=== PATIENT | male | born 1995 ===

== ENCOUNTER 2016-05-16 16:06 | Inpatient (IN) | payer OTHER ==
[~2016-05-16] VITALS: Ht 175.3 cm; Wt 19.4 kg
[2016-05-16] MEDS ORDERED: OXYC-643 PO (17:55)
[2016-05-16] MEDS ORDERED: SODIUM CHLORIDE 0.9% 500ML 500 ML IV STA (18:21)
[2016-05-16] MEDS ORDERED: OPTIRAY 320 IV PRN (18:45)
[2016-05-16 18:46] LABS: BASO % 0.2 %; BASO ABS # 0.03 K/uL (0-0.2); COMPLETE YES; EOS % 0.2 %; HEMATOCRIT 40.5 % (42-52); IG% 0.3 %; LYMPH % 13.5 %; LYMPH ABS # 1.66 K/uL (1.2-3.4); MEAN CELL VOLUME 87.1 fL (80-100); MEAN CORPUSCULAR HEMOGLOBIN 30.3 pg (25-34); MEAN CORPUSCULAR HGB CONC 34.8 g/dl (32-36); MEAN PLATELET VOLUME 9.6 fL (7.4-10.4); MONO % 7.5 %; NEUT % 78.3 %; PLATELET COUNT 286 K/uL (130-400); RED BLOOD COUNT 4.65 M/uL (4.7-6.1); WHITE BLOOD COUNT 12.33 K/uL (4.8-10.8)
[2016-05-16] MEDS ORDERED: MoRPHine SULFATE 10 MG/ML CARP/VIAL IV STA (18:56)
[2016-05-16 19:00] LABS: BLOOD UREA NITROGEN 11 mg/dl (7-18); CREATININE 0.76 mg/dl (0.60-1.40); GLUCOSE 91 mg/dl (70-99)
[2016-05-16 19:01] LABS: ALT/SGPT 18 U/L (12-78); BUN/CREATININE RATIO 14.1 (10-20); CALCIUM 9.7 mg/dl (8.5-10.1); CARBON DIOXIDE 26 mmol/L (21-32); CHLORIDE 102 mmol/L (98-107); POTASSIUM 3.8 mmol/L (3.5-5.1); SODIUM 139 mmol/L (136-145)
[2016-05-16 19:03] LABS: ALKALINE PHOSPHATASE 66 U/L (45-117); AST/SGOT 12 U/L (15-37)
[2016-05-16] MEDS ORDERED: LACTATED RINGER'S 1000ML 1,000 ML IV SCH (19:15)
[2016-05-16] MEDS ORDERED: METHYLENE BLUE 0.5% 10 ML VIAL ONE (19:16)
--- NOTE | 2016-05-16 19:18 | History and Physical ---
History & Physical Date May 16, 2016. 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 (2) No Known Active Medical Problems (3) Tumor of rectum Additional History Hepatic Disease: No Endocrine Disorder: No Kidney Disease: No Hypertension: No Heart Disease: No Allergies Coded Allergies: Amoxicillin (Verified Allergy, Unknown, rash, 05/16/16) Home Medications Miscellaneous Medications Oxycodone/Acetaminophen 5MG/325MG (Oxycodone/Acetaminophen 5MG/325MG), Unknown Dose PO Physical Examination Skin: warm/dry, no rash Eyes: normal inspection Head: atraumatic Neck: supple Respiratory/Chest: lungs clear, no respiratory distress Cardiovascular: regular rate, rhythm Abdomen / GI: + pertinent finding (significant swelling Lt perianal area- fluctuant) Extremities: normal inspection Neurologic/Psych: alert Diagnosis perirectal abscess Plan of Treatment 05/16/16- perirectal abscess- will need OR incision and drainage- CT pelvis has been ordered- IV fluids and antibiotics
--- NOTE | 2016-05-16 19:44 | DIAGNOSTIC IMAGING REPORT ---
Pelvis CT with and without intravenous contrast. HISTORY: Perirectal abscess. Mass at base of scrotum. TECHNIQUE: Multiaxial CT images of the pelvis performed following use of intravenous contrast. COMPARISON STUDY: None. FINDINGS: Mild scrotal wall thickening and enhancement. Within the left perineum there is a 5.8 x 2.0 cm subcutaneous abscess. There is associated skin thickening and subcutaneous fat stranding at this location. There may be a tiny fistula tract extending to the left perianal location. Therefore this favors a perianal abscess rather than subcutaneous abscess. Normal bladder. No bowel wall thickening or obstruction. The visualized appendix is unremarkable. IMPRESSION: Within the left perineum there is a 5.8 x 2.0 cm subcutaneous abscess. There may be a tiny fistula tract extending to the left perianal location. Therefore this favors a perianal abscess rather than subcutaneous abscess. Electronically signed by: Osiel Harrington M.D. 05/16/2016 7:43 PM Dictated Date/Time: 05/16/2016 7:38 PM
[2016-05-16] MEDS ORDERED: METRONIDAZOLE 500MG / 100ML NSS ONE (19:45)
[2016-05-16] MEDS ORDERED: CIPROFLOXACIN 400MG / 200ML D5W ONE (19:45)
[2016-05-16 19:55] VITALS: O2SAT 96
[2016-05-16] MEDS ORDERED: CALCIUM GLUCONATE 10% 10 ML VIAL IV STA (20:01)
[2016-05-16 20:10] LABS: URINE APPEARANCE CLEAR (CLEAR); URINE BILIRUBIN NEG (NEG); URINE COLOR YELLOW; URINE EPITHELIAL CELL AUTO >30 /lpf (0-5); URINE NITRITE NEG (NEG); URINE SPECIFIC GRAVITY 1.042 (1.000-1.030); UROBILINOGEN NEG (NEG)
[2016-05-16 20:11] LABS: MANUAL MICROSCOPIC REQUIRED? NO; REVIEW REQ? YES
[2016-05-16 20:18] LABS: URINE MUCUS PRESENT (NONE PRSENT)
[2016-05-16] MEDS ORDERED: FENTANYL CITRATE INJ 50 MCG/1 ML 2 ML VIAL ONE ×3 (20:18→22:01)
[2016-05-16] MEDS ORDERED: ONDANSETRON INJ 2 MG/ML 2 ML VIAL ONE ×2 (20:19→21:04)
[2016-05-16] MEDS ORDERED: LIDOCAINE HCL 2% 2 ML VIAL (20MG/ML) ONE (20:19)
[2016-05-16] MEDS ORDERED: DEXAMETHASONE SOD INJ 4 MG/ML VIAL ONE (20:19)
[2016-05-16] MEDS ORDERED: MIDAZOLAM HCL 1 MG/ML 2ML VIAL ONE (20:19)
[2016-05-16] MEDS ORDERED: PROPOFOL IV EMULSION 10 MG/ML 20 ML VIAL IV ONE (20:19)
[2016-05-16 20:20] LABS: ZZUR CULT IF INDIC CLEAN CATCH YES
[2016-05-16] MEDS ORDERED: ONDANSETRON INJ 2 MG/ML 2 ML VIAL IV PRN ×2 (20:30→21:30)
[2016-05-16] MEDS ORDERED: PHENYLEPHRINE 100MCG/ML 5ML SYR IV PRN (20:30)
[2016-05-16] MEDS ORDERED: LABETALOL HCL IV 5 MG/ML 20ML IV PRN (20:30)
[2016-05-16] MEDS ORDERED: FENTANYL CITRATE INJ 50 MCG/1 ML 2 ML VIAL IV PRN (20:30)
[2016-05-16] MEDS ORDERED: EpHEDrine SULFATE INJ 50 MG/ML AMP IV PRN (20:30)
[2016-05-16] MEDS ORDERED: HYDROmorphone INJ 2 MG/ML SYR/VIAL IV PRN (20:30)
[2016-05-16] MEDS ORDERED: MEPERIDINE HCL 25 MG/ML CARP IV PRN (20:30)
[2016-05-16] MEDS ORDERED: NALOXONE HCL 0.4 MG/1 ML VIAL/CARP IV PRN (20:30)
[2016-05-16] MEDS ORDERED: ATROPINE SULFATE 0.1 MG/ML 5ML SYR IV PRN (20:30)
[2016-05-16] MEDS ORDERED: FLUMAZENIL 0.1 MG/1 ML 10 ML VIAL IV PRN (20:30)
[2016-05-16] MEDS ORDERED: BUPIVACAINE 0.5 % 5 MG/1 ML MPF 30ML VIAL ONE (20:45)
[2016-05-16] MEDS ORDERED: ETOMIDATE 2 MG/ML 20 ML VIAL IV ONE (21:05)
[2016-05-16] MEDS ORDERED: KETOROLAC TROMETHAMINE 30 MG/ML VIAL ONE ×2 (21:07→21:08)
--- NOTE | 2016-05-16 21:22 | [facility] Post Operative Brief Note ---
Immediate Operative Summary Operative Date May 16, 2016. Pre-Operative Diagnosis perirectal abscess Post-Operative Diagnosis same Procedure(s) Performed incision/ drainage perirectal abscess Surgeon PAULINA [facility] Surgeon(s) nurses Estimated Blood Loss 10 cc Findings abscess Specimens culture Anesthesia gen Complication(s) None Disposition Recovery Room / PACU
[2016-05-16] MEDS ORDERED: HYDROmorphone INJ 1 MG/ML SYR IV PRN (21:30)
[2016-05-16] MEDS ORDERED: PROMETHAZINE HCL INJ 25 MG in SODIUM CHLORIDE 0.9% 50ML 50 ML IV PRN (21:30)
[2016-05-16] MEDS ORDERED: HYDROCODONE/ACETAMOPHEN 5/325MG TAB PO PRN (21:30)
--- NOTE | 2016-05-16 21:46 | OPERATIVE REPORT ---
DATE OF OPERATION: 05/16/2016 NAME OF OPERATION: Incision and drainage of perirectal abscess. PREOPERATIVE DIAGNOSIS: Perirectal abscess. POSTOPERATIVE DIAGNOSIS: Same. STAFF SURGEON: Dr. Chaudhry. ANESTHESIA: General with local. PROCEDURE IN DETAIL: The patient was brought in the operating room and placed on the operating table in supine position. His legs were placed in lithotomy on shark fins. His perianal area was prepped and draped in usual fashion. The abscesses on the left side, the skin and subcutaneous tissue were anesthetized using 0.5% plain Marcaine. An incision was made 2-3 cm in length, carrying dissection down, encountering purulent fluid which was cultured. The site was manipulated with finger dissection and suctioned and then packing applied. A dressing was applied and patient transferred to recovery room in stable condition. I attest to the content of the Intraoperative Record and any orders documented therein. Any exceptio ns are noted below.
--- NOTE | 2016-05-16 22:14 | Anesthesiology Progress Note ---
Anesthesia Post Op Note Date & Time May 16, 2016 at 22:14 Vital Signs Pain Intensity: 3 Vital Signs Past 12 Hours Date Time Temp Pulse Resp B/P Pulse Ox O2 Delivery O2 Flow Rate FiO2 05/16/16 21:35 36.9 97 16 136/89 100 Mask 10 05/16/16 19:55 90 18 116/65 96 Room Air 05/16/16 18:23 96 20 123/70 98 Room Air 05/16/16 16:22 36.8 91 18 120/67 93 Room Air Notes Mental Status: alert / awake / arousable, participated in evaluation Pt Amnestic to Procedure: Yes Nausea / Vomiting: adequately controlled Pain: adequately controlled Airway Patency, RR, SpO2: stable & adequate BP & HR: stable & adequate Hydration State: stable & adequate Anesthetic Complications: no major complications apparent
[2016-05-16 22:40] VITALS: BP 113/58; PULSE 91; TEMP 36.9; O2SAT 100
[2016-05-16] MEDS: LACTATED RINGER'S 1000ML 1,000 ML IV SCH (22:44)
[2016-05-16] MEDS ORDERED: PROMETHAZINE HCL INJ 12.5 MG in SODIUM CHLORIDE 0.9% 50ML 50 ML IV PRN (22:45)
[2016-05-16 23:10] VITALS: BP 108/62; PULSE 66; TEMP 36.7; O2SAT 100
[2016-05-16 23:26] VITALS: BP 113/58; PULSE 91; TEMP 36.9; Ht 175.3 cm; Wt 19.4 kg
[2016-05-16 23:40] VITALS: BP 121/67; PULSE 61; TEMP 36.5; O2SAT 100
[2016-05-17] VITALS (9 sets, daily range): BP systolic 93–117; BP diastolic 50–69; PULSE 53–68; TEMP 36.4–36.9; O2SAT 97–100
[2016-05-17] MEDS: METRONIDAZOLE / NSS 500 MG in PREMIXED NSS 100 ML IV SCH ×4 (00:11→23:58)
--- NOTE | 2016-05-17 01:19 | EMERGENCY ROOM VISIT NOTE ---
History Report prepared by Ana: Shaun Burch Under the Supervision of: Dr. Hasmukh Vegas D.O. First contact with patient: 18:10 Chief Complaint: WOUND INFECTION Stated Complaint: UZAIR-RECTAL ABSCESS Nursing Triage Summary: uzair rectal abscess for 4-5 days History of Present Illness The patient is a 20 year old male who presents to the Emergency Room with complaints of a worsening uzair-rectal abscess beginning 5 days ago. He was found to have a uzair-rectal abscess by S earlier this week. He notes that he recently had surgery in [place] to remove a rectal HPV tumor. The patient also complains of dizziness. He states that he has not been sexually active for over two months, but admits to engaging in anal intercourse prior to this. Pt denies headache, change in vision, fevers greater than 100.4 degrees, chest pain, shortness of breath, nausea, vomiting, diarrhea, urinary symptoms, hematochezia , and melena. Source of History: patient Onset: 5 days ago Position: other (uzair-rectal) Quality: other (wound infection) Timing: worsening Associated Symptoms: No SOB, No chest pain, No cough, No diarrhea, No fevers (greater than 100.4 degrees), No hematochezia, No melena, No nausea, No urinary symptoms, No vomiting Note: The patient also complains of dizziness. Review of Systems See HPI for pertinent positives & negatives. A total of 10 systems reviewed and were otherwise negative. 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 Social History Smoking Status: Never Smoker Current/Historical Medications Miscellaneous Medications Oxycodone/Acetaminophen 5MG/325MG (Oxycodone/Acetaminophen 5MG/325MG), Unknown Dose PO Allergies Coded Allergies: Amoxicillin (Verified Allergy, Unknown, rash, 05/16/16) Physical Exam Vital Signs Date Time Temp Pulse Resp B/P Pulse Ox O2 Delivery O2 Flow Rate FiO2 05/16/16 19:55 90 18 116/65 96 Room Air 05/16/16 18:23 96 20 123/70 98 Room Air 05/16/16 16:22 36.8 91 18 120/67 93 Room Air Physical Exam GENERAL: Sitting up in bed, disheveled, cachectic, nontoxic appearing. EYE EXAM: normal conjunctiva. OROPHARYNX: no exudate, no erythema, lips, buccal mucosa, and tongue normal and mucous membranes are moist NECK: supple, no nuchal rigidity, no adenopathy, non-tender LUNGS: Clear to auscultation. Normal chest wall mechanics HEART: no murmurs, S1 normal and S2 normal ABDOMEN: abdomen soft, non-tender, normo-active bowel sounds, no masses, no rebound or guarding. BACK: Back is symmetrical on inspection and there is no deformity, no midline tenderness, no CVA tenderness. RECTAL: Large fluctuant mass 1 cm from the anus tracking anteriorly to just distally from the scrotum. No masses appreciated on internal rectal exam. SKIN: no rashes and no bruising UPPER EXTREMITIES: upper extremities are grossly normal. LOWER EXTREMITIES: No pitting edema. NEURO EXAM: Normal sensorium Medical Decision & Procedures ER Provider Diagnostic Interpretation: CT:Per my review, radiologist interpretation. Pelvis CT with and without intravenous contrast. FINDINGS: Mild scrotal wall thickening and enhancement. Within the left perineum there is a 5.8 x 2.0 cm subcutaneous abscess. There is associated skin thickening and subcutaneous fat stranding at this location. There may be a tiny fistula tract extending to the left perianal location. Therefore this favors a perianal abscess rather than subcutaneous abscess. Normal bladder. No bowel wall thickening or obstruction. The visualized appendix is unremarkable. IMPRESSION: Within the left perineum there is a 5.8 x 2.0 cm subcutaneous abscess. There may be a tiny fistula tract extending to the left perianal location. Therefore this favors a perianal abscess rather than subcutaneous abscess. Electronically signed by: Osiel Harrington M.D. Laboratory Results 05/16/16 18:30 Red Blood Count 4.65, Mean Corpuscular Volume 87.1, Mean Corpuscular Hemoglobin 30.3, Mean Corpuscular Hemoglobin Concent 34.8, Mean Platelet Volume 9.6, Neutrophils (%) (Auto) 78.3, Lymphocytes (%) (Auto) 13.5, Monocytes (%) (Auto) 7.5, Eosinophils (%) (Auto) 0.2, Basophils (%) (Auto) 0.2, Neutrophils # (Auto) 9.66, Lymphocytes # (Auto) 1.66, Monocytes # (Auto) 0.92, Eosinophils # (Auto) 0.02, Basophils # (Auto) 0.03 05/16/16 18:30 Test 05/16/16 18:30 05/16/16 19:55 White Blood Count 12.33 K/uL (4.8-10.8) Red Blood Count 4.65 M/uL (4.7-6.1) Hemoglobin 14.1 g/dL (14.0-18.0) Hematocrit 40.5 % (42-52) Mean Corpuscular Volume 87.1 fL (80-100) Mean Corpuscular Hemoglobin 30.3 pg (25-34) Mean Corpuscular Hemoglobin Concent 34.8 g/dl (32-36) Platelet Count 286 K/uL (130-400) Mean Platelet Volume 9.6 fL (7.4-10.4) Neutrophils (%) (Auto) 78.3 % Lymphocytes (%) (Auto) 13.5 % Monocytes (%) (Auto) 7.5 % Eosinophils (%) (Auto) 0.2 % Basophils (%) (Auto) 0.2 % Neutrophils # (Auto) 9.66 K/uL (1.4-6.5) Lymphocytes # (Auto) 1.66 K/uL (1.2-3.4) Monocytes # (Auto) 0.92 K/uL (0.11-0.59) Eosinophils # (Auto) 0.02 K/uL (0-0.5) Basophils # (Auto) 0.03 K/uL (0-0.2) RDW Standard Deviation 41.2 fL (36.4-46.3) RDW Coefficient of Variation 12.9 % (11.5-14.5) Immature Granulocyte % (Auto) 0.3 % Immature Granulocyte # (Auto) 0.04 K/uL (0.00-0.02) Anion Gap 11.0 mmol/L (3-11) Est Creatinine Clear Calc Drug Dose 131.6 ml/min Estimated GFR () > 150.0 Estimated GFR (Non- 132.3 BUN/Creatinine Ratio 14.1 (10-20) Calcium Level 9.7 mg/dl (8.5-10.1) Total Bilirubin 0.6 mg/dl (0.2-1) Direct Bilirubin 0.1 mg/dl (0-0.2) Aspartate Amino Transf (AST/SGOT) 12 U/L (15-37) Alanine Aminotransferase (ALT/SGPT) 18 U/L (12-78) Alkaline Phosphatase 66 U/L (45-117) Total Protein 8.1 gm/dl (6.4-8.2) Albumin 4.2 gm/dl (3.4-5.0) Lipase 68 U/L (73-393) Urine Color YELLOW Urine Appearance CLEAR (CLEAR) Urine pH 7.0 (4.5-7.5) Urine Specific [place] 1.042 (1.000-1.030) Urine Protein 2+ (NEG) Urine Glucose (UA) NEG (NEG) Urine Ketones 2+ (NEG) Urine Occult Blood NEG (NEG) Urine Nitrite NEG (NEG) Urine Bilirubin NEG (NEG) Urine Urobilinogen NEG (NEG) Urine Leukocyte Esterase NEG (NEG) Urine WBC (Auto) 1-5 /hpf (0-5) Urine RBC (Auto) 0-4 /hpf (0-4) Urine Hyaline Casts (Auto) 10-30 /lpf (0-5) Urine Epithelial Cells (Auto) >30 /lpf (0-5) Urine Bacteria (Auto) 1+ (NEG) Urine Renal Epithelial Cells /lpf (0-5) Urine Mucus PRESENT (NONE PRSENT) Laboratory results per my review. Medications Administered Medications (Trade) Dose Ordered Sig/Lizzie Route Start Time Stop Time Status Last Admin Dose Admin Sodium Chloride (Nss 500ml) 500 ml @ 999 mls/hr Q31M STAT IV 05/16/16 18:21 05/16/16 18:51 DC 05/16/16 18:35 999 MLS/HR Morphine Sulfate (MoRPHine SULFATE INJ) 6 mg NOW STAT IV 05/16/16 18:56 05/16/16 18:57 DC 05/16/16 19:18 6 MG Metronidazole (Flagyl / Nss) 500 mg STK-MED ONCE .ROUTE 05/16/16 19:45 05/16/16 19:48 DC 05/16/16 19:53 500 MG Ciprofloxacin/ Dextrose (Cipro / D5w) 400 mg STK-MED ONCE .ROUTE 05/16/16 19:45 05/16/16 19:48 DC 05/16/16 19:53 400 MG Fentanyl Citrate (Fentanyl Inj) 25 mcg Q5M PRN IV 05/16/16 20:30 05/16/16 23:59 DC 05/16/16 22:05 25 MCG Bupivacaine HCl 30 ml 30 ml STK-MED ONCE .ROUTE 05/16/16 20:45 05/16/16 20:48 DC 05/16/16 21:19 30 ML Lactated Ringer's (Lr 1000ml) 1,000 ml @ 75 mls/hr [id number] IV 05/16/16 21:22 06/15/16 21:21 05/16/16 22:44 75 MLS/HR ED Course ED COURSE: Vital signs were reviewed and appeared normal. The patients medical record was reviewed The above diagnostic studies were performed and reviewed. ED treatments and interventions as stated above. 1812: The patient was evaluated in room C7. A complete history and physical examination was performed. 1820: Ordered Sodium Chloride 500 ml @ 999 mls/hr IV. 1855: Ordered Morphine Sulfate 6 mg IV. 5: Ordered Lactated Ringer's 1000 mL @ 100 mL/hr IV. 0: Ordered Ciprofloxacin/Dextrose 400 mg/Prmx 200 mL @ 100 mL/hr IV, Metronidazole 500 mg/Prmx 100 mL @ 100 mL/hr IV. 5: I reassessed the patient. He is at CT. 1950: Upon reevaluation, the patient is resting comfortably. I discussed my findings with the patient and he understands and agrees with the treatment plan. Based on the patients age, coexisting illnesses, exam and lab findings the decision to treat as an inpatient was made. The patient remained stable while under my care. The patient will be evaluated for further management. Medical Decision Differential diagnosis includes etiologies such as cellulitis, Win[place]red gangrene , abscess, MRSA infection, DVT, necrotizing fasciitis, dermatitis, drug eruption , as well as others were entertained. Patient is a 20-year-old male who presents for mass in between his scrotum and rectum. This started about 4 days ago and has been progressively worsening. He was referred in by his PCP. Patient has no fevers. Leukocytosis of 12,000. BMP along with LFTs, bilirubin and lipase is unremarkable. UA was contaminated with multiple epithelia cells. CT of abdomen and pelvis shows a possible fistula tracking from the rectum to the abscess. General surgery was consulted. He is given IV narcotics and antibiotics was ordered by general surgery. He was taken to the OR and admitted. Consults Time Called: 1846 Consulting Physician: Dr. Chaudhry -General Surgery Returned Call: [address] Chaudhry. I informed him of the patient and his case. 1950: The patient will be evaluated for further management. Impression Primary Impression: Perianal abscess Scribe Attestation The scribe's documentation has been prepared under my direction and personally reviewed by me in its entirety. I confirm that the note above accurately reflects all work, treatment, procedures, and medical decision making performed by me. Departure Information Dispostion Being Evaluated By Surgeon Referrals [facility] (PCP) Patient Instructions [facility]
--- NOTE | 2016-05-17 06:21 | Surgery Progress Note ---
Surgery Progress Note Date of Service May 17, 2016. Subjective No nausea, No vomiting seems to be comfortable- packing changed by nurse Objective Vital Signs: Date Time Temp Pulse Resp B/P Pulse Ox O2 Delivery O2 Flow Rate FiO2 05/17/16 04:10 36.7 53 16 100/56 99 Room Air 05/17/16 01:40 36.4 58 16 93/51 97 Room Air 05/17/16 01:00 36.7 58 14 108/63 100 Nasal Cannula 2.0 05/17/16 00:40 36.6 62 16 94/55 100 Nasal Cannula 2.0 05/16/16 23:40 36.5 61 16 121/67 100 Nasal Cannula 2.0 05/16/16 23:38 Nasal Cannula 2.0 05/16/16 23:26 36.9 91 16 113/58 Nasal Cannula 2.0 05/16/16 23:15 Room Air 2.0 05/16/16 23:10 36.7 66 16 108/62 100 Nasal Cannula 2.0 05/16/16 22:40 36.9 91 16 113/58 100 Nasal Cannula 2.0 05/16/16 22:30 37.0 76 18 118/68 100 Nasal Cannula 2 05/16/16 22:15 63 22 120/62 100 Nasal Cannula 2 05/16/16 22:05 77 15 112/70 96 Nasal Cannula 2 05/16/16 21:55 75 15 126/76 100 Mask 10 05/16/16 21:45 114 13 125/81 98 Mask 10 05/16/16 21:35 36.9 97 16 136/89 100 Mask 10 05/16/16 19:55 90 18 116/65 96 Room Air 05/16/16 18:23 96 20 123/70 98 Room Air 05/16/16 16:22 36.8 91 18 120/67 93 Room Air General Appearance: no apparent distress Respiratory/Chest: no respiratory distress Incision(s): clean, drainage Laboratory Results: Results Past 24 Hours Test 05/16/16 18:30 05/16/16 19:55 Range/Units White Blood Count 12.33 4.8-10.8 K/uL Red Blood Count 4.65 4.7-6.1 M/uL Hemoglobin 14.1 14.0-18.0 g/dL Hematocrit 40.5 42-52 % Mean Corpuscular Volume 87.1 80-100 fL Mean Corpuscular Hemoglobin 30.3 25-34 pg Mean Corpuscular Hemoglobin Concent 34.8 32-36 g/dl Platelet Count 286 130-400 K/uL Mean Platelet Volume 9.6 7.4-10.4 fL Neutrophils (%) (Auto) 78.3 % Lymphocytes (%) (Auto) 13.5 % Monocytes (%) (Auto) 7.5 % Eosinophils (%) (Auto) 0.2 % Basophils (%) (Auto) 0.2 % Neutrophils # (Auto) 9.66 1.4-6.5 K/uL Lymphocytes # (Auto) 1.66 1.2-3.4 K/uL Monocytes # (Auto) 0.92 0.11-0.59 K/uL Eosinophils # (Auto) 0.02 0-0.5 K/uL Basophils # (Auto) 0.03 0-0.2 K/uL RDW Standard Deviation 41.2 36.4-46.3 fL RDW Coefficient of Variation 12.9 11.5-14.5 % Immature Granulocyte % (Auto) 0.3 % Immature Granulocyte # (Auto) 0.04 0.00-0.02 K/uL Sodium Level 139 136-145 mmol/L Potassium Level 3.8 3.5-5.1 mmol/L Chloride Level 102 98-107 mmol/L Carbon Dioxide Level 26 21-32 mmol/L Anion Gap 11.0 3-11 mmol/L Blood Urea Nitrogen 11 7-18 mg/dl Creatinine 0.76 0.60-1.40 mg/dl Est Creatinine Clear Calc Drug Dose 131.6 ml/min Estimated GFR () > 150.0 Estimated GFR (Non- 132.3 BUN/Creatinine Ratio 14.1 10-20 Random Glucose 91 70-99 mg/dl Calcium Level 9.7 8.5-10.1 mg/dl Total Bilirubin 0.6 0.2-1 mg/dl Direct Bilirubin 0.1 0-0.2 mg/dl Aspartate Amino Transf (AST/SGOT) 12 15-37 U/L Alanine Aminotransferase (ALT/SGPT) 18 12-78 U/L Alkaline Phosphatase 66 45-117 U/L Total Protein 8.1 6.4-8.2 gm/dl Albumin 4.2 3.4-5.0 gm/dl Lipase 68 73-393 U/L Urine Color YELLOW Urine Appearance CLEAR CLEAR Urine pH 7.0 4.5-7.5 Urine Specific [place] 1.042 1.000-1.030 Urine Protein 2+ NEG Urine Glucose (UA) NEG NEG Urine Ketones 2+ NEG Urine Occult Blood NEG NEG Urine Nitrite NEG NEG Urine Bilirubin NEG NEG Urine Urobilinogen NEG NEG Urine Leukocyte Esterase NEG NEG Urine WBC (Auto) 1-5 0-5 /hpf Urine RBC (Auto) 0-4 0-4 /hpf Urine Hyaline Casts (Auto) 10-30 0-5 /lpf Urine Epithelial Cells (Auto) >30 0-5 /lpf Urine Bacteria (Auto) 1+ NEG Urine Renal Epithelial Cells 0-5 /lpf Urine Mucus PRESENT NONE PRSENT Microbiology Results 05/16/16 Urine Culture, Received Pending 05/16/16 Fungal Smear, Received Pending 05/16/16 Fungal Culture, Received Pending 05/16/16 Gram Stain, Received Pending 05/16/16 Bacterial Culture, Received Pending Assessment & Plan 05/17/16- s/p Incision/ drainage perirectal abscess- cont wound care and IV atbx probable d/c 05/18
[2016-05-17] MEDS: CIPROFLOXACIN / D5W 400 MG in PREMIXED IN D5W 200 ML IV SCH ×2 (07:27→20:07)
[2016-05-17] MEDS: HYDROCODONE/ACETAMOPHEN 5/325MG TAB PO PRN ×3 (07:27→18:12)
[2016-05-17] MEDS ORDERED: INFLUENZA VIRUS QUAD VACCINE 0.5 ML SYR IM. ONE (08:00)
[2016-05-17] MEDS ORDERED: INFLUENZA ADMINISTRATION CHARGE ONE (08:00)
[2016-05-17] MEDS: LACTATED RINGER'S 1000ML 1,000 ML IV SCH ×2 (12:21→23:59)
[2016-05-17] MEDS: HYDROmorphone INJ 0.5 MG/0.5 ML SYR IV PRN (16:13)
[2016-05-17] MEDS ORDERED: ZOLPIDEM TARTRATE 10 MG TAB PO PRN (21:45)
[2016-05-17] MEDS ORDERED: NURSING VERBAL MED ORDER ONE (21:45)
[2016-05-18] MEDS: HYDROmorphone INJ 0.5 MG/0.5 ML SYR IV PRN (06:35)
[2016-05-18] MEDS: CIPROFLOXACIN / D5W 400 MG in PREMIXED IN D5W 200 ML IV SCH (07:57)
[2016-05-18] MEDS: METRONIDAZOLE / NSS 500 MG in PREMIXED NSS 100 ML IV SCH (07:57)
[2016-05-18] MEDS: HYDROCODONE/ACETAMOPHEN 5/325MG TAB PO PRN (08:02)
--- NOTE | 2016-05-18 10:47 | Discharge Instructions ---
Discharge Instructions Date of Service May 18, 2016. Admission Reason for Admission: Perirectal Abscess Discharge Discharge Diagnosis / Problem: perirectal abscess Discharge Goals Goal(s): Decrease discomfort, Improve function, Improve disease control Activity Recommendations Activity Limitations: as noted below Lifting Limitations: gradually increase as tolerated Exercise/Sports Limitations: until after follow-up appointment May Resume Sexual Activity: after one week Shower/Bathe: no limitations Driving or Machine Use: no limitations SPECIAL CARE INSTRUCTIONS: * Cover incisions and change daily for comfort/drainage. will need pad for drainage * May use ibuprofen for pain as tolerated. * avoid constipation- may use Milk of magnesia and Senokot S twice daily as directed on the package * Expect some swelling and bruising. Call your doctor if: * Temperature above 101 degrees * Pain not relieved by pain medicine ordered * There is increased drainage or redness from any incision * You have any unanswered questions or concerns [phone]. FOLLOW UP VISIT: If not already scheduled, please call the office for a follow-up visit. for Sun or Sun- wound check OFFICE PHONE NUMBER: Dr. Chaudhry Office . Current Hospital Diet Patient's current hospital diet: Regular Diet Discharge Diet Recommended Diet: Regular Diet Procedures Procedures Performed: incision/ drainage perirectal abscess Pending Studies Studies pending at discharge: no Medical Emergencies . Who to Call and When: Medical Emergencies: If at any time you feel your situation is an emergency, please call 911 immediately. . Non-Emergent Contact Non-Emergency issues call your: Surgeon . "Provider Documentation" section prepared by Keven Chaudhry. VTE Core Measure Inpt VTE Proph given/why not?: SCD's
[2016-05-18] MEDS ORDERED: LEVO1TAB35 PO (10:49)
[2016-05-18] MEDS ORDERED: HYDR-5688 PO (10:49)
[2016-05-18] MEDS ORDERED: METR-163 PO (10:49)
[2016-05-18] MEDS ORDERED: MAGNESIUM HYDROXIDE SUSP 30 ML UDC PO SCH (11:00)
[2016-05-18] MEDS ORDERED: DOCUSATE SODIUM/SENNA 50/8.6MG TAB PO SCH (11:00)
--- NOTE | 2016-05-18 11:12 | DISCHARGE SUMMARY ---
DATE OF DISCHARGE: 05/18/2016. PRINCIPAL DIAGNOSIS: Perirectal abscess. PROCEDURES: The patient underwent incision and drainage of perirectal abscess. HISTORY OF PRESENT ILLNESS: The patient is a 20-year-old male presenting to the Emergency Room with severe perianal infection and abscess undergoing pelvic CT scan showing the abscess. HOSPITAL COURSE: The patient was taken to the operating room from the emergency room where he underwent operative incision and drainage of the abscess and then was subsequently kept on IV antibiotics over the past 2 days and has done quite well. We have changed the packing, although now we will discharge him home without packing and follow him closely in our office and continue his antibiotics.
[2016-05-18 12:34] VITALS: BP 117/69; PULSE 56; TEMP 36.6; O2SAT 98
== END 2016-05-18 13:10 | disposition home or self-care (01) | DRG 395 ==
LOC: ENRESERVTM → ENRESERVDT → C.EDB 16:08 → C.3E 21:29
PROVIDERS: ADMIT Surgery; ATTEND Surgery
PROC: 0D9P3ZZ Drainage of Rectum, Percutaneous Approach (ICD-10-PCS; principal; 2016-05-16 20:30)
DX: K61.1 Rectal abscess (principal)